=== PATIENT | male | born 1975 | race Caucasian/White ===

== ENCOUNTER 2017-04-16 09:55 | Emergency (ER) | payer MEDICAID, OTHER ==
--- NOTE | 2017-04-16 10:37 | EDPHY ---
H & P Stated Complaint: Sinus infection, pneumonia, feels anti bx are causing kidney pain. Time Seen by Provider: 04/16/17 10:37 HPI/ROS: HPI: This is a 41-year-old male who presents with Chief Complaint: Sinus infection, pneumonia, feels anti bx are causing kidney pain. Location: Chest Quality: Cough Duration: 2-4 days Signs and Symptoms:+ fever, + chills, + sinus pressure, + nasal congestion, bilateral lower back pain nonradiating in nature Timing: Worsening Severity: [id number] Context: History of asthma, hypertension, Lyme disease presents with chest nonproductive coughing for the last 2-4 days. Patient reports that approximately 4 days ago she started experiencing fevers with body aches and chills. Reports he never gets his influenza vaccine. On the he was seen by his primary care provider for sinus infection and also diagnosed with irregular lung sounds in the right base. He was started on Augmentin even though he has an allergy to amoxicillin. Yesterday and today he started feeling lower back pain that is bilateral in nature. Denies urinary symptoms/ testicular groin pain/neck stiffness/headache. Patient is taking ibuprofen trying to drink fluids. Modifying Factors: See above Comment: ROS: see HPI Constitutional: No fever, no chills, no weight loss Eyes: No blurred vision Respiratory: No shortness of breath, no cough Cardiovascular: No chest pain Gastrointestinal: No nausea, no vomiting, no diarrhea Genitourinary: No dysuria Extremities: No myalgias Neurologic: No weakness, no numbness Skin: No rashes Hematologic: No bruising, no bleeding MEDICAL/SURGICAL/SOCIAL HISTORY: Medical history: Asthma, hypertension, Lyme disease Surgical history: Denies Social history: Employed CONSTITUTIONAL: awake and alert, no obvious distress HEENT: Atraumatic and normocephalic, PERRL, EOMI. Tympanic membranes clear. Nares patent with mild mucosal edema and greenish discharge. Oropharynx clear, no exudate and moist pink mucosa. Airway patent. No lymphadenopathy. No meningismus. Cardiovascular: Normal S1/S2, regular rate, regular rhythm, without murmur rub or gallop. PULMONARY/CHEST: Symmetrical and nontender. Clear to auscultation bilaterally. Good air movement. No accessory muscle usage. ABDOMEN: Soft, nondistended, nontender, no rebound, no guarding, no peritoneal signs, no masses or organomegaly. No CVAT. EXTREMITIES: 2/2 pulses, strength 5/5, no deformities, no clubbing, no cyanosis or edema. BACK: No midline tenderness, no paraspinous spasm, deep tendon reflexes 2/2 throughout NEUROLOGICAL: no focal neuro deficits. GCS 15. SKIN: Warm and dry, no erythema. no rash. Good capillary refill. Source: Patient Exam Limitations: No limitations - Personal History Current Tetanus Diphtheria and Acellular Pertussis (TDAP): Yes - Medical/Surgical History Hx Asthma: No Hx Chronic Respiratory Disease: No Hx Diabetes: No Hx Cardiac Disease: No Hx Renal Disease: No Hx Cirrhosis: No Hx Alcoholism: No Hx HIV/AIDS: No Hx Splenectomy or Spleen Trauma: No Other PMH: Asthma. HTN. Lyme dx. - Social History Smoking Status: Never smoked Constitutional: Initial Vital Signs Temperature (C) 36.6 C 04/16/17 10:00 Heart Rate 75 04/16/17 10:00 Respiratory Rate 18 04/16/17 10:00 Blood Pressure 148/87 H 04/16/17 10:00 O2 Sat (%) 98 04/16/17 10:00 O2 Delivery Mode Room Air Allergies/Adverse Reactions: Penicillins Allergy (Verified 07/24/12 20:12) Home Medications: Medication Instructions Recorded Miscellaneous Medical Supply [NO 1 ea MIS AD 07/24/12 HOME MEDS] AZITHROMYCIN [Z-PACK] 250 mg PO DAILY #6 tab 04/16/17 Amox Tr/K Clav (Augmentin) 04/16/17 Medical Decision Making - Diagnostics Imaging Results: Imaging Impressions Chest X-Ray 04/16/17 10:41 Impression: No pneumonia. ED Course/Re-evaluation: Labs, chest x-ray, urinalysis, IV fluids ordered Patient is afebrile and no hypoxia. Chest x-ray my read shows no opacity, effusion, pneumothorax. Labs reviewed and grossly unremarkable. No signs of AKA, electrolyte imbalance, sepsis, leukocytosis Influenza B positive; too late to start Tamiflu Advised to stop his Augmentin; will gave Zithromax for sinus infection Differential Diagnosis: Differential diagnosis includes but is not limited to sinus infection, community -acquired pneumonia, and acute kidney injury, influenza, upper respiratory infection, viral syndrome. - Data Points Laboratory Results: Laboratory Results 04/16/17 11:00 04/16/17 11:00 04/16/17 04/16/17 04/16/17 12:43 12:00 11:00 WBC RBC Hgb Hct MCV MCH MCHC RDW Plt Count MPV Neut % (Auto) Lymph % (Auto) [place] % (Auto) Eos % (Auto) Baso % (Auto) Nucleat RBC Rel Count Absolute Neuts (auto) Absolute Lymphs (auto) Absolute Monos (auto) Absolute Eos (auto) Absolute Basos (auto) Absolute Nucleated RBC Immature Gran % Immature Gran # VBG Lactic Acid Sodium 145 mEq/L H mEq/L (134-144) Potassium 4.4 mEq/L mEq/L (3.5-5.2) Chloride 110 mEq/L mEq/L (97-110) Carbon Dioxide 20 mEq/l L mEq/l (22-31) Anion Gap 15 mEq/L mEq/L (8-16) BUN 16 mg/dL mg/dL (7-23) Creatinine 0.9 mg/dL mg/dL (0.7-1.3) Estimated GFR > 60 Glucose 86 mg/dL mg/dL (70-100) Calcium 9.8 mg/dL mg/dL (8.5-10.4) Total Bilirubin 0.3 mg/dL mg/dL (0.1-1.4) AST 26 IU/L IU/L (17-59) ALT 47 IU/L IU/L (21-72) Alkaline Phosphatase 58 IU/L IU/L (38-126) Total Protein 7.1 g/dL g/dL (6.3-8.2) Albumin 4.3 g/dL g/dL (3.5-5.0) Urine Color YELLOW Urine Appearance CLEAR Urine pH 5.0 (5.0-7.5) Ur Specific [place] 1.019 (1.002-1.030) Urine Protein NEGATIVE (NEGATIVE) Urine Ketones NEGATIVE (NEGATIVE) Urine Blood NEGATIVE (NEGATIVE) Urine Nitrate NEGATIVE (NEGATIVE) Urine Bilirubin NEGATIVE (NEGATIVE) Urine Urobilinogen NEGATIVE EU EU (0.2-1.0) Ur Leukocyte Esterase NEGATIVE (NEGATIVE) Urine Glucose NEGATIVE (NEGATIVE) Nasal Influenza A PCR NEGATIVE FOR FLU A (NEGATIVE) Nasal Influenza B PCR FLU B DETECTED H (NEGATIVE) 04/16/17 04/16/17 11:00 11:00 WBC 3.48 10^3/uL L 10^3/uL (3.80-9.50) RBC 5.76 10^6/uL 10^6/uL (4.40-6.38) Hgb 17.6 g/dL H g/dL (13.7-17.5) Hct 50.4 % % (40.0-51.0) MCV 87.5 fL fL (81.5-99.8) MCH 30.6 pg pg (27.9-34.1) MCHC 34.9 g/dL g/dL (32.4-36.7) RDW 12.9 % % (11.5-15.2) Plt Count 167 10^3/uL 10^3/uL (150-400) MPV 9.6 fL fL (8.7-11.7) Neut % (Auto) 19.2 % L % (39.3-74.2) Lymph % (Auto) 52.6 % H % (15.0-45.0) [place] % (Auto) 17.0 % H % (4.5-13.0) Eos % (Auto) 9.5 % H % (0.6-7.6) Baso % (Auto) 1.4 % % (0.3-1.7) Nucleat RBC Rel Count 0.0 % % (0.0-0.2) Absolute Neuts (auto) 0.67 10^3/uL L 10^3/uL (1.70-6.50) Absolute Lymphs (auto) 1.83 10^3/uL 10^3/uL (1.00-3.00) Absolute Monos (auto) 0.59 10^3/uL 10^3/uL (0.30-0.80) Absolute Eos (auto) 0.33 10^3/uL 10^3/uL (0.03-0.40) Absolute Basos (auto) 0.05 10^3/uL 10^3/uL (0.02-0.10) Absolute Nucleated RBC 0.00 10^3/uL 10^3/uL (0-0.01) Immature Gran % 0.3 % % (0.0-1.1) Immature Gran # 0.01 10^3/uL 10^3/uL (0.00-0.10) VBG Lactic Acid 0.8 mmol/L mmol/L (0.7-2.1) Sodium Potassium Chloride Carbon Dioxide Anion Gap BUN Creatinine Estimated GFR Glucose Calcium Total Bilirubin AST ALT Alkaline Phosphatase Total Protein Albumin Urine Color Urine Appearance Urine pH Ur Specific [place] Urine Protein Urine Ketones Urine Blood Urine Nitrate Urine Bilirubin Urine Urobilinogen Ur Leukocyte Esterase Urine Glucose Nasal Influenza A PCR Nasal Influenza B PCR Departure - Departure Disposition: Home, Routine, Self-Care Clinical Impression: Upper respiratory infection with cough and congestion, Influenza B Condition: Good Instructions: Influenza (ED), Sinusitis (ED) Additional Instructions: Discontinue taking Augmentin. Start taking azithromycin. Please drink plenty of fluids to prevent dehydration. Take Tylenol and ibuprofen as needed for fever, body aches. Referrals: ÁNGEL CASTILLO [Primary Care Provider] - As per Instructions Prescriptions: AZITHROMYCIN [Z-PACK] 250 mg PO DAILY #6 tab
[2017-04-16] MEDS ORDERED: NS 3,000 ML IV ONE (10:41)
[2017-04-16 11:15] LABS: % IMMATURE GRANULYOCYTES 0.3 % (0.0-1.1); ABSOLUTE IMMATURE GRANULOCYTES 0.01 10^3/uL (0.00-0.10); ADD DIFF? NO; ADD MORPH? NO; ADD SCAN? NO; ATYPICAL LYMPHOCYTE FLAG 80 (0-99); FRAGMENT RBC FLAG 0 (0-99); HEMATOCRIT 50.4 % (40.0-51.0); HEMOGLOBIN 17.6 g/dL (13.7-17.5); LEFT SHIFT FLG 0 (0-99); LIPEMIA HEMOLYSIS FLAG 90 (0-99); MEAN CELL HEMOGLOBIN 30.6 pg (27.9-34.1); MEAN CELL HEMOGLOBIN CONCENTR. 34.9 g/dL (32.4-36.7); MEAN CELL VOLUME 87.5 fL (81.5-99.8); MEAN PLATELET VOLUME 9.6 fL (8.7-11.7); PLATELET CLUMPS FLAG 0 (0-99); PLATELET COUNT 167 10^3/uL (150-400); RED BLOOD CELL COUNT 5.76 10^6/uL (4.40-6.38); RED CELL DISTRIBUTION WIDTH 12.9 % (11.5-15.2)
[2017-04-16 11:32] LABS: ALANINE AMINOTRANSFERASE 47 IU/L (21-72); ALBUMIN 4.3 g/dL (3.5-5.0); ALKALINE PHOSPHATASE 58 IU/L (38-126); ANION GAP 15 mEq/L (8-16); ASPARTATE AMINOTRANSFERASE 26 IU/L (17-59); BILIRUBIN,TOTAL 0.3 mg/dL (0.1-1.4); CALCIUM 9.8 mg/dL (8.5-10.4); CARBON DIOXIDE 20 mEq/l (22-31); CHLORIDE 110 mEq/L (97-110); CREATININE 0.9 mg/dL (0.7-1.3); GLOMERULAR FILTRATION RATE > 60; GLUCOSE 86 mg/dL (70-100); POTASSIUM 4.4 mEq/L (3.5-5.2); SODIUM 145 mEq/L (134-144); TOTAL PROTEIN 7.1 g/dL (6.3-8.2)
[2017-04-16 12:52] LABS: COLOR YELLOW; LEUKOCYTE ESTERASE,URINE NEGATIVE (NEGATIVE); NITRITE,URINE NEGATIVE (NEGATIVE)
[2017-04-16 13:25] LABS: PRINT OR CALL CRITICALS TECH CALL
[2017-04-16 14:06] VITALS: RESP 16; O2SAT 96
[2017-04-16 14:07] VITALS: BP 138/74; PULSE 78; TEMP 98.4
== END 2017-04-16 14:11 | disposition home or self-care (01) ==
DX: J10.1 Influenza due to other identified influenza virus with other respiratory manifestations (principal); I10 Essential (primary) hypertension; J45.909 Unspecified asthma, uncomplicated

== ENCOUNTER 2018-01-13 02:23 | Emergency (ER) | payer OTHER ==
[2018-01-13] MEDS ORDERED: ASPIRIN 81 MG CHEWABLE TAB PO ONE (02:36)
[2018-01-13] MEDS ORDERED: NS 1,000 ML IV ONE (02:36)
[2018-01-13] MEDS ORDERED: ALBUTEROL INH PREPACK MDI TAKEHOME ONE (02:41)
[2018-01-13] MEDS ORDERED: ASPIRIN 81 MG CHEWABLE TAB ONE (02:43)
--- NOTE | 2018-01-13 02:47 | EDPHY ---
H & P Stated Complaint: ARM TINGLING AND CHEST PAIN Time Seen by Provider: 01/13/18 02:36 HPI/ROS: CHIEF COMPLAINT: Chest pain HISTORY OF PRESENT ILLNESS: The patient is a 42-year-old man with a history of palpitations and anxiety who comes to the emergency department because he was woke from sleep about an hour ago with sweating, what felt like a pinched nerve in his left shoulder and some tingling on the left side of his jaw. He has also had a mild similar productive cough over the last week which she attributes to his mild asthma. He was concerned because his dad had to have a triple bypass about 50 years of age. The patient has not had any nausea vomiting. No weakness or numbness. Does not radiate to his back or arm. He reports that he had a stress test about 2 years ago that was negative. His symptoms have now mostly resolved. No leg pain or swelling. No real shortness of breath. He did travel to [place] 2 weeks ago. REVIEW OF SYSTEMS: Constitutional: denies: chills, fever, recent illness, recent injury EENTM: denies: blurred vision, double vision, nose congestion Respiratory: denies: cough, shortness of breath Cardiac: See HPI Gastrointestinal/Abdominal: denies: abdominal pain, diarrhea, nausea, vomiting, blood streaked stools Genitourinary: denies: dysuria, frequency, hematuria, pain Musculoskeletal: denies: joint pain, muscle pain Skin: denies: lesions, rash, jaundice, bruising Neurological: denies: headache, numbness, paresthesia, tingling, dizziness, weakness Hematologic/Lymphatic: denies: blood clots, easy bleeding, easy bruising Immunologic/allergic: denies: HIV/AIDS, transplant EXAM: GENERAL: Well-appearing, well-nourished and in no acute distress. HEAD: Atraumatic, normocephalic. EYES: Pupils equal round and reactive to light, extraocular movements intact, sclera anicteric, conjunctiva are normal. ENT: TMs normal, nares patent, oropharynx clear without exudates. Moist mucous membranes. NECK: Normal range of motion, supple without lymphadenopathy or JVD. LUNGS: Breath sounds clear to auscultation bilaterally and equal. No wheezes rales or rhonchi. HEART: Regular rate and rhythm without murmurs, rubs or gallops. ABDOMEN: Soft, nontender, normoactive bowel sounds. No guarding, no rebound. No masses appreciated. BACK: No CVA tenderness, no spinal tenderness, step-offs or deformities EXTREMITIES: Normal range of motion, no pitting or edema. No clubbing or cyanosis. NEUROLOGICAL: Cranial nerves II through XII grossly intact. Normal speech, normal gait. 5/5 strength, normal movement in all extremities, normal sensation PSYCH: Normal mood, normal affect. SKIN: Warm, dry, normal turgor, no visible rashes or lesions. Source: Patient Exam Limitations: No limitations - Personal History Current Tetanus/Diphtheria Vaccine: Unsure - Medical/Surgical History Hx Asthma: Yes Hx Chronic Respiratory Disease: No Hx Diabetes: No Hx Cardiac Disease: No Hx Renal Disease: No Hx Cirrhosis: No Hx Alcoholism: No Hx HIV/AIDS: No Hx Splenectomy or Spleen Trauma: No Other PMH: HYPOTYROID, HEART PALPATATIONS. HYPERCHOLESTEROL. Asthma. HTN. Lyme dx. - Family History Significant Family History: No pertinent family hx - Social History Smoking Status: Never smoked Alcohol Use: None Drug Use: None Constitutional: Initial Vital Signs Temperature (C) 36.7 C 01/13/18 02:26 Heart Rate 77 01/13/18 02:26 Respiratory Rate 16 01/13/18 02:26 Blood Pressure 157/89 H 01/13/18 02:26 O2 Sat (%) 96 01/13/18 02:26 O2 Delivery Mode Room Air Allergies/Adverse Reactions: Penicillins Allergy (Verified 07/24/12 20:12) Home Medications: Medication Instructions Recorded Levothyroxine Q2D 01/13/18 Medical Decision Making - Diagnostics EKG Interpretation: An EKG obtained and was read and documented in trace view. Please see trace view for full reading and report. Sinus rhythm no acute ischemic changes, no previous for comparison Imaging: I viewed and interpreted images myself (No acute disease) ED Course/Re-evaluation: We had a long discussion and engaged in shared decision making. The patient initially wanted to go home but eventually decided to stay and have a repeat troponin. He is asymptomatic. 4:45 a.m. the patient's repeat troponin is also negative. He is asymptomatic. He is eager to go home. Have him follow up with Dr. Irvin who is his help aid to see some for palpitations. We discussed indications for returning. Differential Diagnosis: Partial list of the Differential diagnosis considered include but were not limited to; acute coronary disease, pneumonia, bronchitis and although unlikely based on the history and physical exam, I also considered PE, dissection, aneurysm, pneumothorax. I discussed these differential diagnoses and the plan with the patient as well as the usual and expected course. The patient understands that the diagnosis is provisional and that in medicine we are not always correct and that further workup is often warranted. Usual and customary warnings were given. All of the patient's questions were answered. The patient was instructed to return to the emergency department should the symptoms at all worsen or return, otherwise to followup with the physician as we discussed. - Data Points Laboratory Results: Laboratory Results 01/13/18 02:42 Medications Given: Discontinued Medications Albuterol Sulfate (Proventil Inh Prepack) 1 mdi TAKEHOME EDNOW ONE Stop: 01/13/18 02:42 Last Admin: 01/13/18 02:49 Dose: 1 mdi Aspirin (Aspirin) 324 mg PO EDNOW ONE Stop: 01/13/18 02:37 Last Admin: 01/13/18 02:45 Dose: 324 mg Sodium Chloride (Ns) 1,000 mls @ 0 mls/hr IV EDNOW ONE; Wide Open PRN Reason: Protocol Stop: 01/13/18 02:37 Last Admin: 01/13/18 02:45 Dose: 1,000 mls Point of Care Test Results: CBC CBC Collection Date 01/13/18 CBC Collection Time 02:50 RBC 5.69 HGB 17.2 HCT 51.3 PLT 231 MCV 90.2 Chemistry 01/13/18 01/13/18 01/13/18 04:30 02:52 02:49 POC Sodium 142 mEq/L mEq/L (135-145) POC Potassium 3.9 mEq/L mEq/L (3.3-5.0) POC Chloride 110.0 mEq/L mEq/L (97-110) POC Total CO2 25 mEq/L mEq/L (22-31) POC BUN 15 mg/dL mg/dL (7-23) POC Creatinine 1.2 mg/dL mg/dL (0.7-1.3) POC Glucose 96 mg/dL mg/dL (70-100) POC Calcium 9.8 mg/dL mg/dL (8.5-10.4) POC Total Bilirubin 0.7 mg/dL mg/dL (0.1-1.4) POC AST 34 IU/L IU/L (17-59) POC ALT 37 IU/L IU/L (21-72) POC Alk Phosphatase 67 IU/L IU/L (38-126) POC Troponin I 0.01 ng/mL ng/mL 0.00 ng/mL ng/mL (0.00-0.08) (0.00-0.08) POC Total Protein 7.0 g/dL g/dL (6.3-8.2) POC Albumin 3.8 g/dL g/dL (3.5-5.0) D-Dimer D-Dimer Collection Date 01/13/18 D-Dimer Collection Time 02:40 D-Dimer (ng/ml) <100 Departure - Departure Disposition: Home, Routine, Self-Care Clinical Impression: Chest pain Qualifiers: Chest pain type: unspecified Qualified Code(s): R07.9 - Chest pain, unspecified Condition: Fair Instructions: Chest Pain (ED) Referrals: Patient,NotPresent [Primary Care Provider] - As per Instructions Marcus Irvin MD [Medical Doctor] - 2-3 days, call for appt.
--- NOTE | 2018-01-13 02:48 | CPEKG ---
Test Reason : Chest Pain Blood Pressure : / mmHG Vent. Rate : 068 BPM Atrial Rate : 069 BPM P-R Int : 169 ms QRS Dur : 097 ms QT Int : 414 ms P-R-T Axes : 031 059 044 degrees QTc Int : 441 ms Sinus rhythm Confirmed by Buzz Lombardo ([id number]) on 01/13/2018 2:47:41 AM Referred By: Confirmed By:Buzz Lombardo
[2018-01-13 04:27] LABS: PLATELET COUNT 227 10^3/uL (150-400)
[2018-01-13 04:51] VITALS: BP 132/84
== END 2018-01-13 04:52 | disposition home or self-care (01) ==
LOC: CED 02:23
DX: R07.9 Chest pain, unspecified (principal); E86.9 Volume depletion, unspecified; F41.9 Anxiety disorder, unspecified; E03.9 Hypothyroidism, unspecified; I10 Essential (primary) hypertension; E78.00 Pure hypercholesterolemia, unspecified; J45.909 Unspecified asthma, uncomplicated
CPT/HCPCS: 71046-PO; 80053-PO; 84484-PO

== ENCOUNTER → 2018-02-02 | Outpatient (CLI) | payer OTHER ==
[~2018-02-02] MED LIST: IOPAMIDOL (ISOVUE 370) 100 ML BTL IV ONE; METOPROLOL TARTRATE 5 MG/5 ML INJ ONE; ONDANSETRON 4 MG/2 ML VIAL IVP ONE; ONDANSETRON 4 MG/2 ML VIAL ONE
== END ==
LOC: FIMAGING 11:45
PROVIDERS: ATTEND Internal Medicine Cardiovascular Disease
DX: R07.9 Chest pain, unspecified (principal); I25.10 Atherosclerotic heart disease of native coronary artery without angina pectoris; Z82.49 Family history of ischemic heart disease and other diseases of the circulatory system
CPT/HCPCS: J2405; Q9967

== ENCOUNTER → 2018-08-12 | Outpatient (CLI) | payer OTHER | LOC: EMCIMAGING 08:50 | PROVIDERS: ATTEND Physician Assistant Medical | DX: R51 Headache (principal); R42 Dizziness and giddiness | CPT/HCPCS: 70551-PN ==

== ENCOUNTER → 2018-09-01 | Outpatient (CLI) | payer OTHER | LOC: EMCIMAGING 07:55 | PROVIDERS: ATTEND Physician Assistant | DX: R11.0 Nausea (principal) | CPT/HCPCS: 76705-PN ==